=== PATIENT | male | born 1955 | race African-American/Black ===

== ENCOUNTER 2017-10-04 08:29 | Emergency (ER) | payer OTHER ==
[~2017-10-04] VITALS: Ht 175.3 cm; Wt 104.3 kg
[2017-10-04] MEDS ORDERED: GLUCOPHAGE500 MG PO (08:52)
[2017-10-04] MEDS ORDERED: HUMALOG100 UNITS/ IV (08:52)
[2017-10-04] MEDS ORDERED: LANTUS100 UNITS/ SUB-Q (08:53)
== END 2017-10-04 09:20 | disposition home or self-care (01) ==
LOC: ED 08:29
DX: S06.0X0A Concussion without loss of consciousness, initial encounter (principal); S16.1XXA Strain of muscle, fascia and tendon at neck level, initial encounter; W20.8XXA Other cause of strike by thrown, projected or falling object, initial encounter; Y92.69 Other specified industrial and construction area as the place of occurrence of the external cause; Y99.0 Civilian activity done for income or pay
CPT/HCPCS: 99282

== ENCOUNTER 2018-01-18 14:58 | Emergency (ER) | payer OTHER ==
[~2018-01-18] VITALS: Ht 180.3 cm; Wt 106.6 kg
[~2018-01-18 14:58] MED LIST: GLUCOPHAGE500 MG PO; HUMALOG100 UNITS/ IV; LANTUS100 UNITS/ SUB-Q
[2018-01-18] MEDS ORDERED: AMLODIPINE BESY10 MG PO (15:24)
[2018-01-18] MEDS ORDERED: ZOLPIDEM TARTRA10 MG PO (15:25)
[2018-01-18] MEDS ORDERED: GABAPENTIN100 MG PO (15:25)
[2018-01-18] MEDS ORDERED: TAMSULOSIN HCL0.4 MG PO (15:26)
[2018-01-18] MEDS ORDERED: ATORVASTATIN CA80 MG PO (15:26)
[2018-01-18] MEDS ORDERED: LISINOPRIL40 MG PO (15:26)
[2018-01-18] MEDS ORDERED: CLEOCIN HCL300 MG PO (15:29)
== END 2018-01-18 15:48 | disposition home or self-care (01) ==
LOC: ED 14:58
DX: A46 Erysipelas (principal); E11.40 Type 2 diabetes mellitus with diabetic neuropathy, unspecified; I10 Essential (primary) hypertension; Z79.4 Long term (current) use of insulin
CPT/HCPCS: 99283